=== PATIENT | female | born 1980 | race Caucasian/White ===

== ENCOUNTER 2018-01-02 00:59 | Emergency (ER) | payer OTHER ==
[~2018-01-02] VITALS: Ht 152.4 cm; Wt 60.8 kg
[2018-01-02 01:42] LABS: HEMATOCRIT 37.7 % (36.0-46.0); HEMOGLOBIN 12.9 G/DL (11.9-15.5); MCH 31.2 PG (29.0-34.0); MCHC 34.2 G/DL (30.0-36.0); MCV 91.1 FL (83-99); PLATELET COUNT 257 K/uL (156-360); RBC DIS.WIDTH-CV 12.6 % (11.8-14.6); RBC DIS.WIDTH-SD 41.6 % (39-53); RED BLOOD COUNT 4.14 M/uL (3.80-5.20); WHITE BLOOD COUNT 9.6 K/uL (4.1-10.2)
[2018-01-02 01:56] LABS: ALBUMIN 4.4 g/dL (3.2-4.8); CHLORIDE 108 mEq/L (99-109); POTASSIUM 3.4 mEq/L (3.7-5.4); SODIUM 141 mEq/L (136-147)
[2018-01-02 01:59] LABS: GLUCOSE 127 mg/dL (70-99); TOTAL PROTEIN 6.7 g/dL (6.4-8.3)
[2018-01-02 02:01] LABS: TOTAL BILIRUBIN 0.2 mg/dL (0.0-1.0)
[2018-01-02 02:02] LABS: ALKALINE PHOSPHATASE 81 IU/L (3-129); CREATININE 0.7 mg/dL (0.6-1.3)
[2018-01-02 02:03] LABS: GFR ESTIMATE (CALCULATED) > 59 mL/min/; UREA NITROGEN (BUN) 17 mg/dL (9-23)
[2018-01-02 02:04] LABS: AST (GOT) 20 IU/L (2-34)
[2018-01-02 02:05] LABS: ALT (GPT) 12 IU/L (3-49)
[2018-01-02 02:11] LABS: QUANTITATIVE HCG < 4.0 MIU/ML
[2018-01-02 04:05] LABS: APPEARANCE CLEAR ((CLEAR)); BILIRUBIN NEGATIVE; BLOOD NEGATIVE; COLOR YELLOW ((YELLOW)); GLUCOSE (STRIP) NEGATIVE; KETONES 5; LEUKOCYTES NEGATIVE; NITRITE NEGATIVE; PROTEIN (STRIP) NEGATIVE; SPECIFIC GRAVITY 1.057 (1.000-1.030); UCUL ADDED? NO; UROBILINOGEN 0.2 MG/DL (0.2-1.0)
[2018-01-02] MEDS ORDERED: CIPRO500 MG PO (04:12)
[2018-01-02] MEDS ORDERED: ZOFRAN4 MG PO (04:12)
[2018-01-02] MEDS ORDERED: FLAGYL500 MG PO (04:12)
[2018-01-02] MEDS ORDERED: MECLIZINE HCL25 MG PO (04:28)
[2018-01-02 04:36] VITALS: BP 104/71
== END 2018-01-02 04:38 | disposition home or self-care (01) ==
LOC: EME → EDBD 00:59 → EME 00:59
PROVIDERS: Emergency Medicine
DX: K52.9 Noninfective gastroenteritis and colitis, unspecified (principal); R42 Dizziness and giddiness; I10 Essential (primary) hypertension; K21.9 Gastro-esophageal reflux disease without esophagitis; F17.200 Nicotine dependence, unspecified, uncomplicated; Z90.710 Acquired absence of both cervix and uterus
CPT/HCPCS: 74177; 80053; 81003; 84702; 85027; 99281; 99285; J2405; J7030